=== PATIENT | male | born 1950 | race Caucasian/White ===

== ENCOUNTER 2021-12-12 11:32 | Outpatient (CLI) | payer BC, SELFPAY ==
--- NOTE | 2021-12-12 11:56 | USCV_ITS ---
Trenton Pat Age: 71 Gender: M : 1950 Exam Date: 12/12/2021 12:16 Ordering Phys: Mary Oliva NP Technologist: CHARLINE Exam Location: [facility] [place] Indication: SCREENING FOR AAA, H/O SMOKING HISTORY: Diameter (cm) AP x Transverse x Length Velocity (cm/s) Waveform Prox Aorta: 2.10 x 2.46 x 71.90 Mid Aorta: 1.95 x 2.17 x 71.90 Distal Aorta: 1.94 x 2.04 x 99.20 Right Iliac Prox: 1.16 x 1.33 x 63.60 Left Iliac Prox: 1.48 x 1.57 x 65.30 Stent Prox Landing x x Aneurysmal Sac Max x x Lt Lat Sac Dim Rt Lat Sac Dim Stent Dist Landing x x Right Iliac Stent x x Left Iliac Stent x x Right Renal Art Left Renal Art FINDINGS: Comparison: none available. No evidence of abdominal aortic or bilateral iliac aneurysm. Ectatic abdominal aorta with evidence of atherosclerotic plaque noted. There is evidence of atherosclerotic plaque no significan stenosis in the right common iliac artery. There is evidence of atherosclerotic plaque no significan stenosis in the left common iliac artery. CONCLUSIONS Mild atherosclerosis abdomnal aorta, no AAA. Dr. Monica Clarke DO (Electronically Signed) Final Date: 12 December 2021 12:41 S
== END 2021-12-12 11:33 | disposition home or self-care (01) ==
PROVIDERS: Visit Provider Nurse Practitioner Family
DX: Z00.00 Encounter for general adult medical examination without abnormal findings (principal); I70.0 Atherosclerosis of aorta; Z87.891 Personal history of nicotine dependence
CPT/HCPCS: 76706